=== PATIENT | male | born 1960 | race Caucasian/White ===

== ENCOUNTER 2024-02-05 09:39 | Inpatient (IN) ==
--- NOTE | 2024-02-05 10:15 | Emergency Department Note ---
History of Present Illness General Chief complaint: Knee Injury/Pain Stated complaint: L KNEE EDEMA, SWOLLEN Time Seen by Provider: 02/05/24 09:50 History of Present Illness Maximum Pain Intensity: 5 This is a 63-year-old male that presents to the emergency department via private vehicle with complaints of "left leg edema, swelling". Patient notes that over the past few days he has noticed some swelling and discomfort to the left anterior knee and upon awakening today notes erythema from the left knee towards the left ankle. No known trauma or injury however has had a chronic wound to the left anterior prepatellar region. Patient denies any pain deep in the knee joint. No posterior knee pain. No calf pain. No history of blood clot. No fevers, chills, nausea or vomiting. No known drug allergies. Patient notes he is scheduled for right knee meniscus surgery in the near future. Home Medications Medication Instructions Recorded Confirmed Type bisoprolol 10 1 tab PO QAM ##0 05/26/08 02/05/24 History mg-hydrochlorothiazide 6.25 mg tablet amoxicillin 500 mg capsule 2,000 mg PO DIRECTED PRN dental 02/05/24 02/05/24 History appt. aspirin 81 mg tablet,delayed 81 mg PO DAILY 02/05/24 02/05/24 History release atorvastatin 10 mg tablet 10 mg PO QAM 02/05/24 02/05/24 History chlorhexidine gluconate 0.12 % 1 ea PO BID 02/05/24 02/05/24 History mouthwash hydrocodone 10 mg-acetaminophen 1 tab PO QID PRN Pain 02/05/24 02/05/24 History 325 mg tablet pregabalin 150 mg capsule 150 mg PO HS 02/05/24 02/05/24 History sennosides 8.6 mg tablet (senna) 17.2 mg PO HS PRN Constipation 02/05/24 02/05/24 History tadalafil 5 mg tablet 5 mg PO DAILY PRN Erectile 02/05/24 02/05/24 History Dysfunction Allergies Allergy/AdvReac Type Severity Reaction Status Date / Time No Known Allergies Allergy Mild NONE Unverified 05/21/15 07:47 Past Med/Surg History Problem List (Updated 02/05/24 @ 14:19 by Ana Constantino RN) Right knee meniscal tear Chronic back pain Cellulitis of left leg (Acute) Hypertension Post-operative state Medical History (Updated 02/05/24 @ 16:42 by Uziel Patel PA-C) Prostate CA Surgical History (Updated 02/05/24 @ 14:19 by Ana Constantino RN) History of hip surgery History of prostatectomy No significant past surgical history Social History Smoking Status: Never smoker Do You Dip or Chew Tobacco: No; Hx Alcohol Use: No Hx Substance Use: No Preferred Language: Turkmen Communication Ability: Effective General Accountant Required: No Beliefs That Will Affect Care: None marital status: Current Living Situation: Spouse Other Information That Helps Us Care for You: No Feels Safe at Home: Yes Safety Concerns: Feels Safe At This Time Assistive Devices: None Review of Systems A total of 10 systems reviewed and were otherwise negative Physical Exam Vital Signs Vital Signs - 24 hr 02/05/24 09:45 02/05/24 10:23 Temperature 36.5 C Temperature Source Temporal Artery Scan Pulse Rate 64 60 Respiratory Rate 18 Respiratory Effort / Characteristics Non-Labored Spontaneous Respiratory Depth Normal Respiratory Pattern Regular Blood Pressure 144/76 H Blood Pressure Mean 98 Pulse Oximetry 98 Oxygen Delivery Method Room Air Sepsis Recent Fever Within 48 Hours No Sepsis New/Unexplained Change in Mental Status No Sepsis Action Taken by Nursing No Action Required VITAL SIGNS - Vital signs and nursing notes were reviewed. Stable, afebrile. GENERAL -63-year-old male appearing his stated age who is in no acute distress. Communicates well with provider and answers questions appropriately. SKIN - Without rashes. Skin as above. There is erythema tracking overlying the left anterior knee region distal to the pretibial soft tissue just proximal to the left ankle. There is a approximately 1 cm in length region overlying the patella consistent with chronic wound. No purulence. No crepitus. Minimal tenderness overlying the prepatellar region. HEAD - NC/AT. EYES - Sclera anicteric. NECK - No nuchal rigidity. LUNGS - CTA CARDIAC - RRR EXTREMITIES - No clubbing or peripheral cyanosis. No pretibial edema present. +5/5 strength noted in UE/LE bilaterally. There is some soft tissue edema overlying the left anterior prepatellar soft tissues without fluctuance. Skin as above with the erythema noted overlying the anterior left lower extremity. No crepitus to the leg. NEUROLOGIC - Cranial nerves grossly intact. Sensory intact to light touch throughout. PSYCH -alert, oriented and pleasant on exam. Pt is very pleasant and interacts well with examiner. Course Administered Medications Hydrocodone Bitart/Acetaminophen (Hydrocodone/Acetaminophen 10/325 Tab) 1 tab PO QID PRN PRN Reason: Mod-Sev Pain (Scale 4-10) Stop: 02/19/24 14:09 Last Admin: 02/05/24 15:38 Dose: 1 tab Documented By: DARYL Discontinued Medications Cefazolin Sodium (Ancef 2000mg) 2,000 mg in 15 mls @ 3.75 mls/min IV NOW STA Stop: 02/05/24 10:13 Last Admin: 02/05/24 10:22 Dose: 3.75 mls/min Documented By: TRISTIN Vancomycin HCl 2,000 mg/ (Sodium Chloride) 540 mls @ 200 mls/hr IV NOW ONE Stop: 02/05/24 13:53 Last Infusion: 02/05/24 15:38 Dose: Infused Documented By: Admin: 02/05/24 12:17 Dose: 200 mls/hr Documented By: MINESH Medical Decision Making Laboratory Data 02/05/24 10:20 02/05/24 10:20 Lab Results 02/05/24 Range/Units 10:20 WBC 10.14 (4.8-10.8) K/ul RBC 4.59 L (4.70-6.10) M/uL Hgb 13.8 L (14.0-18.0) g/dl Hct 40.9 L (42.0-52.0) % MCV 89.1 (80.0-100.0) fL MCH 30.1 (25.0-34.0) pg MCHC 33.7 (32.0-36.0) g/dL RDW Std Deviation 40.5 (36.4-46.3) fL RDW Coeff of Chris 12.4 (11.5-14.5) % Plt Count 208 (130-400) K/uL MPV 9.8 (9.4-12.4) fL Immature Gran % (Auto) 0.5 % Neut % (Auto) 75.2 % Lymph % (Auto) 15.9 % Powell % (Auto) 7.6 % Eos % (Auto) 0.5 % Baso % (Auto) 0.3 % Neut # (Auto) 7.63 H (1.40-6.50) K/uL Lymph # (Auto) 1.61 (1.20-3.40) K/uL Powell # (Auto) 0.77 H (0.11-0.59) K/uL Eos # (Auto) 0.05 (0.00-0.50) K/uL Baso # (Auto) 0.03 (0.00-0.20) K/uL Immature Gran # (Auto) 0.05 (0.01-0.20) K/uL Sodium 138 (136-145) mmol/L Potassium 4.4 (3.5-5.1) mmol/L Chloride 103 (98-107) mmol/L Carbon Dioxide 30 (21-32) mmol/L Anion Gap 5 (3-11) BUN 12 (6-23) mg/dl Creatinine 0.92 (0.6-1.4) mg/dl Est Cr Clr Drug Dosing 93.3 ml/min eGFR 92.31 BUN/Creatinine Ratio 13.0 (10-20) Glucose 136 H (70-99(Fasting)) mg/dl Calcium 9.1 (8.6-10.3) mg/dl Total Bilirubin 0.8 (0.2-1.0) mg/dl AST 14 (13-39) U/L ALT 12 (7-52) U/L Alkaline Phosphatase 67 (34-104) U/L Total Protein 6.5 (6.0-8.3) gm/dl Albumin 4.2 (3.4-5.0) gm/dl Globulin 2.3 L (2.5-4.0) gm/dl Albumin/Globulin Ratio 1.8 (0.9-2) Procalcitonin 0.03 (0-0.5) ng/ml Imaging Data Radiologist's Impression: Knee X-Ray 02/05/24 10:10 LEFT KNEE 3 VIEWS CLINICAL HISTORY: Left knee pain. FINDINGS: AP, crosstable lateral, and sunrise views of the left knee are obtained. No prior studies are available for comparison at the time of dictation. The skeletal structures appear osteopenic. No fracture is seen. There is mild tricompartmental degenerative joint space narrowing. Patellar enthesophytes are observed. A calcified fabella is incidentally noted. There is a small joint effusion. Marked prepatellar soft tissue swelling is observed. There is atherosclerotic calcification of the popliteal artery. IMPRESSION: Marked prepatellar soft tissue swelling with no acute bony abnormality identified. Electronically signed by: Marco Zapata M.D. 02/05/2024 11:36 AM Venous Doppler Study 02/05/24 10:10 ULTRASOUND LEFT LOWER EXTREMITY VENOUS CLINICAL HISTORY: Left knee pain and swelling. Erythema. COMPARISON STUDY: No priors. TECHNIQUE: Real-time, grayscale, and color Doppler sonography of the deep veins of the left lower extremity was performed from the inguinal crease to the calf. Compression and augmentation were utilized. FINDINGS: There is no sonographic evidence of deep venous thrombosis identified in the left lower extremity. The common femoral, superficial femoral, and popliteal veins are patent and normally compressible. The greater saphenous vein and the profunda femoris vein at the junction with the common femoral vein are clear. The visualized calf veins are patent. IMPRESSION: There is no sonographic evidence of deep venous thrombosis identified in the left lower extremity. ACT 112: Negative or not required by law. Electronically signed by: Marco Zapata M.D. 02/05/2024 11:07 AM MDM Narrative Patient was seen and evaluated as above in room A10. Review was performed of triage nursing notes and vital signs. Patient presents to us today for evaluation of left lower extremity edema and erythema. This is overlying the prepatellar soft tissue tracking inferiorly overlying the pretibial soft tissues to the level of the ankle. Presentation consistent with cellulitis. There is prepatellar edema noted however there is no fluctuance. Although a bursitis also may be possible, noting the overlying erythema we will refrain from aspirating the bursa in the event this may be just overlying cellulitis and not affecting the bursa. There certainly is no evidence of this being a septic joint. IV access with established. Labs were drawn. There is no leukocytosis. Minor anemia noted with hemoglobin of 13.8. No emergent metabolic disturbance. Hyperglycemia 136. Procalcitonin 0.03. Blood culture pending. No purulence or evidence of abscess to culture at this time. IV Ancef plus vancomycin ordered. I do believe that inpatient management is warranted noting the speed of the spreading as well as the size of the involved area. Case discussed with the hospitalist service. Please refer to further documentation regarding his stay. In the evaluation and treatment of this patient the following differential diagnoses were entertained: Septic bursitis, septic joint, cellulitis, abscess, necrotizing fasciitis, among others Impression & Plan Cellulitis of left leg Discharge Plan Visit Data Chief Complaint: Knee Injury/Pain Stated Complaint: L KNEE EDEMA, SWOLLEN ED Provider: Pineda Moscoso ED Midlevel Provider: Uziel Patel Discharge Problem: Cellulitis of left leg Patient Disposition: Admitted As Inpatient Condition: Good Discharge Instructions Interventions: ED Discharge Assessment Last Done: 02/05/24 13:56
[2024-02-05] MEDS: ceFAZolin 2000MG 2,000 MG/15 ML SYR IV STA (10:22)
[2024-02-05 10:39] LABS: Basophils # (auto) 0.03 K/uL (0.00-0.20); Basophils % (auto) 0.3 %; Eosinophils # (auto) 0.05 K/uL (0.00-0.50); Eosinophils % (auto) 0.5 %; Hematocrit (blood only) 40.9 % (42.0-52.0); Hemoglobin 13.8 g/dl (14.0-18.0); Immature Granulocytes # (auto) 0.05 K/uL (0.01-0.20); Immature Granulocytes % (auto) 0.5 %; Lymphocytes # (auto) 1.61 K/uL (1.20-3.40); Lymphocytes % (auto) 15.9 %; Mean Corpuscular Hemoglobin 30.1 pg (25.0-34.0); Mean Corpuscular Hgb Conc 33.7 g/dL (32.0-36.0); Mean Corpuscular Volume 89.1 fL (80.0-100.0); Mean Platelet Volume 9.8 fL (9.4-12.4); Monocytes # (auto) 0.77 K/uL (0.11-0.59); Monocytes % (auto) 7.6 %; Neutrophils # (auto) 7.63 K/uL (1.40-6.50); Neutrophils % (auto) 75.2 %; Platelet Count 208 K/uL (130-400); RDW Coefficient of Variation 12.4 % (11.5-14.5); RDW Standard Deviation 40.5 fL (36.4-46.3); Red Blood Count 4.59 M/uL (4.70-6.10); White Blood Count 10.14 K/ul (4.8-10.8)
[2024-02-05 10:53] LABS: Albumin Globulin Ratio 1.8 (0.9-2); Albumin Level 4.2 gm/dl (3.4-5.0); Bilirubin,Total 0.8 mg/dl (0.2-1.0); Calcium 9.1 mg/dl (8.6-10.3); Creatinine Clr Calc Pharmacy 93.3 ml/min; Globulin 2.3 gm/dl (2.5-4.0); Potassium 4.4 mmol/L (3.5-5.1); Total Protein 6.5 gm/dl (6.0-8.3)
--- NOTE | 2024-02-05 11:09 | Ultrasound Report ---
ULTRASOUND LEFT LOWER EXTREMITY VENOUS CLINICAL HISTORY: Left knee pain and swelling. Erythema. COMPARISON STUDY: No priors. TECHNIQUE: Real-time, grayscale, and color Doppler sonography of the deep veins of the left lower ext remity was performed from the inguinal crease to the calf. Compression and augmentation were utilized . FINDINGS: There is no sonographic evidence of deep venous thrombosis identified in the left lower ext remity. The common femoral, superficial femoral, and popliteal veins are patent and normally compress ible. The greater saphenous vein and the profunda femoris vein at the junction with the common femora l vein are clear. The visualized calf veins are patent. IMPRESSION: There is no sonographic evidence of deep venous thrombosis identified in the left lower e xtremity. ACT 112: Negative or not required by law. Electronically signed by: Marco Zapata M.D. 02/05/2024 11:07 AM
[2024-02-05] MEDS ORDERED: VANCOMYCIN CONSULT ACTIVE PRN (11:12)
--- NOTE | 2024-02-05 11:37 | XRay Report ---
LEFT KNEE 3 VIEWS CLINICAL HISTORY: Left knee pain. FINDINGS: AP, crosstable lateral, and sunrise views of the left knee are obtained. No prior studies a re available for comparison at the time of dictation. The skeletal structures appear osteopenic. No f racture is seen. There is mild tricompartmental degenerative joint space narrowing. Patellar enthesop hytes are observed. A calcified fabella is incidentally noted. There is a small joint effusion. Marke d prepatellar soft tissue swelling is observed. There is atherosclerotic calcification of the poplite al artery. IMPRESSION: Marked prepatellar soft tissue swelling with no acute bony abnormality identified. Electronically signed by: Marco Zapata M.D. 02/05/2024 11:36 AM
--- NOTE | 2024-02-05 11:43 | History & Physical Report ---
Date of Service February 05, 2024 Assessment & Plan (1) Cellulitis of left leg: (2) Hypertension: (3) Chronic back pain: (4) Right knee meniscal tear: Plan: Cellulitis LLE - Admit to med surg - Started on Vancomycin and cefazolin IV in the ER, will continue cefazolin alone, may be able to transition to oral tablet tomorrow - Follow blood culture x 1, outlined cellulitis with skin marker at bedside - Afebrile, WBC 10K, trend - Patient has minimal pain with palpation, has full range of motion - X-ray left extremity reviewed personally, negative for any acute effusion - Doppler left lower extremity negative for acute DVT - No area to culture any wound R meniscus injury - Possible tear, pt reports scheduled for surgery in 2 weeks HTN -Cont home medications Chronic Back Pain - May continue pain medications, hydrocodone/acetaminophen and pregabalin DVT ppx: teds, scds Lines : PIV 1 CODE: FULL Dispo: From home, likely to remain in the hospital x 1-2 days A total of 76 minutes were spent with greater than 50% of that time face to face with the patient, personally reviewing all current laboratories, imaging studies, past medication reconciliation, outpatient chart review, and discussion with specialists to collaborate care for the patient with attending. Please see attending documentation for corrections and/or additions. History of Present Illness Chief Complaint: Left lower leg redness Primary Care Provider: TAWANA Beckwith This is a 63-year-old male with PMHx of hypertension who presents to the hospital with worsening left lower extremity redness over the past 24 hours. He reports that he does have an area of his knee which has dry skin, scar for many years, but does not know of any known injury/trauma to the affected area. His at bedside, states that he does pick at the area. He thought this started on Thursday where the left knee seemed to have some fluid on it, but then redness started last evening (). It is somewhat painful to touch on the left knee, but Pt has been putting more weight on the left knee because he has a meniscus tear on the right knee and is wearing a brace to support the right. Planned meniscus tear repair on the Right knee surgery in 2 weeks as outpatient. He notices redness is over the left fierro region, knee and up to mid thigh. He denies any bites, scratches patient denies any fever chills or sweats. In the ER patient had an x-ray of the lower extremity which was negative for obvious effusion. DVT of leg is also negative for acute clot. Past Medical History Prostate cancer s/p resection - 2021 - follow with Dr. Murphy Back Pain Social Hx: Denies tobacco or alcohol use, or ilicit drug use. Surgical Hx: R hip total hip replacement, Left Prostate resection Back surgeries - Dr. Kulkarni at [facility] [place] (2002 and 2004) - no fusion Family Hx: Father - Heart disease, Prostate Cancer, Stroke, Skin Cancer Mother- Alive and Well Allergies Allergy/AdvReac Type Severity Reaction Status Date / Time No Known Allergies Allergy Mild NONE Unverified 05/21/15 07:47 Home Medications Medication Instructions Recorded Confirmed Type bisoprolol 10 1 tab PO QAM ##0 05/26/08 02/05/24 History mg-hydrochlorothiazide 6.25 mg tablet amoxicillin 500 mg capsule 2,000 mg PO DIRECTED PRN dental 02/05/24 02/05/24 History appt. aspirin 81 mg tablet,delayed 81 mg PO DAILY 02/05/24 02/05/24 History release atorvastatin 10 mg tablet 10 mg PO QAM 02/05/24 02/05/24 History chlorhexidine gluconate 0.12 % 1 ea PO BID 02/05/24 02/05/24 History mouthwash hydrocodone 10 mg-acetaminophen 1 tab PO QID PRN Pain 02/05/24 02/05/24 History 325 mg tablet pregabalin 150 mg capsule 150 mg PO HS 02/05/24 02/05/24 History sennosides 8.6 mg tablet (senna) 17.2 mg PO HS PRN Constipation 02/05/24 02/05/24 History tadalafil 5 mg tablet 5 mg PO DAILY PRN Erectile 02/05/24 02/05/24 History Dysfunction Past Med/Surg History Problem List (Updated 10/20/23 @ 13:29 by Alpesh Ramos) Right knee meniscal tear Chronic back pain Hypertension Cellulitis of left leg Post-operative state Surgical History (Updated 10/20/23 @ 13:29 by Alpesh Ramso) No significant past surgical history Social History Smoking Status: Never smoker Preferred Language: Vietnamese marital status: Feels Safe at Home: Yes Review of Systems Review of Systems: Constitutional: No fever, sweats or chills Eyes: No diplopia, no worsening or blurred vision ENT: normal hearing, no trouble swallowing Respiratory: No cough, sputum, dyspnea at rest or on exertion Cardiovascular: No chest pain, tightness or palpitations Abdomen: No pain, nausea, vomiting, diarrhea or constipation Musculoskeletal: As per HPI. Back: chronic back pain Neurologic: No weakness, numbness/tingling, or balance problems Psychiatric: No anxiety or depression Skin: No rash or itch, + redness as per HPI of Lower leg Physical Exam Physical Exam: Please refer to attending addendum for PE. Results & Data Results & Data Vital Signs (Past 12 Hours) Vital Signs Temp Pulse Resp BP Pulse Ox O2 Del Method 02/05/24 10:23 60 02/05/24 09:45 36.5 C 64 18 144/76 H 98 Room Air Laboratory Results 02/05/24 10:20 Aerobic Blood Culture - Pending Blood Anaerobic Blood Culture - Pending 02/05/24 10:20 WBC 10.14 RBC 4.59 L Hgb 13.8 L Hct 40.9 L MCV 89.1 MCH 30.1 MCHC 33.7 RDW Std Deviation 40.5 RDW Coeff of Hcris 12.4 Plt Count 208 MPV 9.8 Immature Gran % (Auto) 0.5 Neut % (Auto) 75.2 Lymph % (Auto) 15.9 Miner % (Auto) 7.6 Eos % (Auto) 0.5 Baso % (Auto) 0.3 Neut # (Auto) 7.63 H Lymph # (Auto) 1.61 Miner # (Auto) 0.77 H Eos # (Auto) 0.05 Baso # (Auto) 0.03 Immature Gran # (Auto) 0.05 Sodium 138 Potassium 4.4 Chloride 103 Carbon Dioxide 30 Anion Gap 5 BUN 12 Creatinine 0.92 Est Cr Clr Drug Dosing 93.3 eGFR 92.31 BUN/Creatinine Ratio 13.0 Glucose 136 H Calcium 9.1 Total Bilirubin 0.8 AST 14 ALT 12 Alkaline Phosphatase 67 Total Protein 6.5 Albumin 4.2 Globulin 2.3 L Albumin/Globulin Ratio 1.8 Procalcitonin 0.03 Diagnostic Findings Knee X-Ray 02/05/24 10:10 LEFT KNEE 3 VIEWS CLINICAL HISTORY: Left knee pain. FINDINGS: AP, crosstable lateral, and sunrise views of the left knee are obtained. No prior studies are available for comparison at the time of dictation. The skeletal structures appear osteopenic. No fracture is seen. There is mild tricompartmental degenerative joint space narrowing. Patellar enthes ophytes are observed. A calcified fabella is incidentally noted. There is a small joint effusion. Marked prepatellar soft tissue swelling is observed. There is atherosclerotic calcification of the popliteal artery. IMPRESSION: Marked prepatellar soft tissue swelling with no acute bony abnormality identified. Electronically signed by: Marco Zapata M.D. 02/05/2024 11:36 AM Venous Doppler Study 02/05/24 10:10 ULTRASOUND LEFT LOWER EXTREMITY VENOUS CLINICAL HISTORY: Left knee pain and swelling. Erythema. COMPARISON STUDY: No priors. TECHNIQUE: Real-time, grayscale, and color Doppler sonography of the deep veins of the left lower extremity was performed from the inguinal crease to the calf. Compression and augmentation were utilized. FINDINGS: There is no sonographic evidence of deep venous thrombosis identified in the left lower extremity. The common femoral, superficial femoral, and popliteal veins are patent and normally compressible. The greater saphenous vein and the profunda femoris vein at the junction with the common femoral vein are clear. The visualized calf veins are patent. IMPRESSION: There is no sonographic evidence of deep venous thrombosis identified in the left lower extremity. ACT 112: Negative or not required by law. Electronically signed by: Marco Zapata M.D. 02/05/2024 11:07 AM Code Status & VTE Plan Code Status Full code - discussed with pt at bedside Supervising Physician Co-Signing Physician Notes 63 yo M w/ PMH of HTN presented w/ c/o worsening erythema LLE. Per pt, he has chronic scab over the left patella for over a decade, he sometimes picks on it and has been overusing left knee due to meniscal tear on right (awaiting repair). He noted swelling over left knee about 3-4 days ago, was tender to touch around it but no pain while using the joint/moving around. He started having redness over the area since yesterday and spread around and down to lower leg today which actually triggered him to come to the ED. Pt denies fever/sore throat/Cough/chest pain/nausea/vomiting/acute changes in bowel or bladders habit. Labs wnl, no leucocytosis. vitals wnl, no fever, tachy or increased rr Lt Knee XR w/ Marked prepatellar soft tissue swelling with no acute bony abnormality identified. LLE venous Doppler neg for DVT. LLE cellulitis: pt received cefazolin and vanc in the ed. Will c/w cefazolin only. dc vanc. monitor. follow admitting blood culture. If worsening, repeat imaging, consider ortho and change antibiotic to broad spectrum. Such plan of care was explained to pt and his at bedside who were in agreement w/ plan of care. Other chronic condition: HTN, HLD -- c/w home meds. On exam: GENERAL: Alert and oriented x3. NAD, on RA. HEENT: No pallor, no icterus. Pupils equal, round and reactive to light. Oral mucosa moist. NECK: No JVD, no neck masses. HEART: S1 and S2 heard. Regular rate and rhythm. No murmur, no gallop. RESPIRATORY SYSTEM: Normal AP diameter. No accessory muscle use. No wheezing, no crackles. ABDOMEN: Soft, bowel sounds present, nontender, no distention. CENTRAL NERVOUS SYSTEM: No facial droop. Speech is clear. Obeys simple commands. Moves extremities. EXTREMITIES: No edema. RLE - knee sleeve on, no erythema. LLE - old scar x central prepatellar area, non tender on exam, rom not painful, erythema from lower thigh to lower leg w/ anterio-lateral spread. Prepatellar soft tissue swelling noted, non tender. I have seen and examined the patient and have discussed the case with the provider above. I agree with the assessment and plan as stated. Total time spent: 30 min.
[2024-02-05] MEDS: VANCOMYCIN HCL 2,000 MG in SODIUM CHLORIDE 0.9% 500 ML IV ONE (12:17)
--- NOTE | 2024-02-05 13:08 | Emergency Department Note ---
ED Visit Note I was consulted in regards to the patient's presentation and plan of care by the Advanced Practice Provider. I engaged in a detailed/meaningful discussion with the Advanced Practice Provider in regards to this patient's workup and plan of care. I performed a substantiative portion of the medical decision making following discussion with the Advanced Practice Provider. Please see the Advanced Practice Provider's separate documentation for full details of the patient's visit. I agree with the assessment and plan of Uziel Patel PA-C. [facility] Moscoso, Emergency Medicine .
[2024-02-05] MEDS ORDERED: ONDANSETRON INJ 2 MG/ML 2 ML VIAL IV PRN (14:10)
[2024-02-05] MEDS ORDERED: ACETAMINOPHEN 325 MG TAB PO PRN (14:10)
[2024-02-05] MEDS ORDERED: SENNA 8.6 MG TAB PO PRN (14:10)
[2024-02-05] MEDS: HYDROcodone/ACETAMINOPHEN 10/325 TAB PO PRN (15:38)
[2024-02-05] MEDS: ceFAZolin 2000MG 2,000 MG/15 ML SYR IV SCH (18:39)
--- OUTSIDE RECORDS SUMMARY | 2024-02-05 19:46 | External Medical Summary | Summary of Care ---
Author Name Unknown Organization [facility] Address [address] [place] [facility] [place] [address] Phone [phone] Care Team Providers Care Key Entry Operator Name Role Phone Sushant Parada Primary Care Prov ider Reason for Visit * Reason Comments Outpatient Testing Encounter Details Date Type Department Care Team (Late st Contact Info) Description 02/02/2024 9:40 AM EDT Laboratory Laboratory [address] [place] [id number] [place], [facility] [address] [place] [address] [employer] Other*[id number] Allergies No known active allergiesdocumented as of this encounter (statuses as of 02/02/2024) Medications Medication Sig Dispensed Refills Start Date End Date Status Pregabalin 150 MG Oral Capsule (LYRICA) Take 1 Capsule by mouth in the morning and 1 Capsule at noon and 1 Capsule before bedtime. 01/16/2020 Active Bisoprolol-hydroCHL OROthiazide 10-6.25 MG Oral Tablet (ZIAC) Take 1 Tablet by mouth in the morning. 12/21/2019 Active traMADol HCl 50 MG Oral Tablet (Ultram) TAKE 1-2 TABLETS BY MOUTH 4 TIMES A DAY NEEDED FOR PAIN 10/17/2021 Active Vitamin D (Cholecalciferol) 10 MCG (400 UNIT) Oral Tablet Chewable Take 1 Tablet by mouth in the morning. Active oxyCODONE HCl 10 MG Oral Tablet (Roxicodone) every 6 hours as needed. 10/19/2022 Active Methotrexate Sodium 2.5 MG Oral Tablet Take 1 Tablet by mouth once a week. Take 5 tablets once a week 01/21/2023 Active Aspirin 81 MG Oral Tablet Delayed Release Take 1 Tablet by mouth in the morning. 04/08/2023 Active Tadalafil 5 MG Oral Tablet (Cialis)Indications :Erectile dysfunction, unspecified erectile dysfunction type,BPH with obstruction/lower urinary tract symptoms,Elevated prostate specific antigen (PSA) TAKE 1 TABLET BY MOUTH ONCE DAILY IF NEEDED FOR ERECTILE DYSFUNCTION 90 Tablet 3 06/26/2023 Active Atorvastatin Calcium 10 MG Oral Tablet (Lipitor)Indication s:Hyperlipidemia with target LDL less than 100 take 1 tablet by mouth once daily 90 Tablet 3 08/17/2023 Active documented as of this encounter (statuses as of 02/02/2024) Active Problems Problem Noted Date Diagnosed Date PAD (peripheral artery disease) 11/12/2022 Renal cyst, acquired 11/04/2022 Urinary incontinence 07/29/2022 Prostate cancer 05/29/2022 BPH with obstruction/lower urinary tract symptom s 12/16/2021 Elevated prostate specific antigen (PSA) 022 Erectile dysfunction 12/16/2021 Prostate cancer 10/30/2021 ADVANCE DIRECTIVE INFORMATION 06/11/2005 Overview: Yes, Patient instructed to provide copy of advance directive for provider to review and to be scanned into Electronic Medical Record documented as of this encounter (statuses as of 02/02/2024) Immunizations Name Administration Dates Next Due Seasonal Influenza, PF, 6 M & above, IM , (FluLaval or Fluzone) 02/10/2023 documented as of this encounter Social History Tobacco Use Types Packs/Day Years Used Date Smoking Tobacco: Never Smokeless Tobacco: Former Snuff, Chew Comments:as a "kid" Alcohol Use Standard Drinks/Week Comments Not Currently 0 (1 standard drink = 0.6 oz pur e alcohol) rare Utilities Answer Date Recorded Do you have trouble paying y our heating, water, or electric bill? (Adult - for ages 18 years and over) Not on file 10/13/2023 Is your family able to pay t he heat, water, or electric bill? (Household - for ages 0-17 years) Not on file 10/13/2023 Does your family have access to good internet? (Household - for ages 0-17 years) Not on file 10/13/2023 Social Connections Answer Date Recorded How often do you feel lonely or isolated from those around you? (Adult - for ages 18 years and over) Not on file 10/13/2023 Sex and Gender Information Value Date Recorded Sex Assigned at Not on file Gender Identity Not on file Sexual Orientation Not on file Job Start Date Occupation Industry Not on file Not on file Not on file documented as of this encounter Functional Status Functional Status Response Date of Assess ment Are you deaf or do you have serious difficulty h earing? No 05/29/2022 Are you blind or do you have serious difficulty seeing, even when wearing glasses? No 05/29/2022 Do you have serious difficul ty walking or climbing stairs? (5 years old or older) No 05/29/2022 Do you have difficulty dress ing or bathing? (5 years old or older) No 05/29/2022 Because of a physical, menta l, or emotional condition, do you have difficulty doing errands alone such as visiting a doctor s office or shopping? (15 years old or older) No 05/29/19 Cognitive Status Response Date of Assessm ent Because of a physical, menta l, or emotional condition, do you have serious difficulty concentrating, remembering, or making decisions? (5 years old or older) No 05/29/2022 documented as of this encounter Plan of Treatment Upcoming Encounters Date Type Department Care Team (Late st Contact Info) Description 07/12/2024 8:30 AM EDT Office Visit Urology, [facility] [address] [facility] [place] [id number] Montrell Murphy MD [address] [place] [phone] Pending Results Name Type Priority Associated Diagnoses Date /Time MYCODE SUBSEQUENT ADULT Lab Routine [employer] Other*[id number] 02/02/2024 9:39 AM EDT MYCODE SST1 Lab Routine [employer] Other*[id number] 02/02/2024 9:39 AM EDT MYCODE SST2 Lab Routine [employer] Other*[id number] 02/02/2024 9:39 AM EDT Health Maintenance Due Date Last Done Comments Pneumococcal Vaccine: 65+ Years (1 of 2 - PCV) 1964 Depression Screening 1970 HIV Screening 1973 Hepatitis C Screening 1976 DTap/Tdap Vaccines (1 - Tdap) 1977 Zoster Vaccines (1 of 2) 1977 Colonoscopy 10/25/2003 Fecal Occult Blood Test 10/25/2003 Sigmoidoscopy 10/25/2003 COVID-19 Vaccine (3 - Pfizer risk series) 08/13/2020 07/16/2020, 06/25/2020 Influenza Vaccine (FLU shot) (#1) 2023 02/10/2023, 01/06/2020, 01/06/2020, Additional history exists Diabetes Screening 05/30/2025 05/30/2022, 0 05/29/2022, 05/29/2022, Additional history exists Cologuard 03/13/2026 03/13/2023, 11/0 12/2022, 08/28/2022, Additional history exists Colorectal Cancer Screening 03/13/2026 Lipid Panel 11/05/2026 11/05/2021, 04/0 07/2021, 10/17/2020, Additional history exists HPV (Gardasil) Vaccine Aged Out No lo nger eligible based on patient's age to complete this topic Hepatitis B Vaccine Aged Out No longe r eligible based on patient's age to complete this topic MENINGOCOCCAL (MENACTRA/MENVEO) Aged Out No longer eligible based on patient's age to complete this topic documented as of this encounter Medical Devices Not on filedocumented as of this encounter Visit Diagnoses Diagnosis [employer] Other*[id number] documented in this encounter Advance Directives * Full Code (Latest Code Status on File) Date Activated Date Inactivated Comments 05/30/2022 8:08 AM 05/30/2022 4:53 PM This order ref lects the patients wishes and were consensually agreed upon. Question Answer Comments Discussion of Advance Directives occurred with: Patient * Full Code Date Activated Date Inactivated Comments 05/29/2022 1:45 PM 05/30/2022 8:08 AM This order ref lects the patients wishes and were consensually agreed upon. Question Answer Comments Discussion of Advance Directives occurred with: Patient * Full Code Date Activated Date Inactivated Comments 05/29/2022 7:14 AM 05/29/2022 1:45 PM This order ref lects the patients wishes and were consensually agreed upon. Question Answer Comments Discussion of Advance Directives occurred with: Patient Care Teams Key Entry Operator Relationship Specialty Start Date End Date Sushant Parada CRNP [address] [place] [id number] PCP - General Nurse Practitioner 10/30/21 documented as of this encounter
--- OUTSIDE RECORDS SUMMARY | 2024-02-05 19:47 | External Medical Summary ---
Author Name Unknown Address Unknown Organization K01:[facility] [address] [place] [address] Laboratory Report Ordering Provider Test Date Status KIANA LOPEZ 02/02/2024 09:39:27 Final Observation Date Value Abnormality Reference (Units ) Status PSA 02/02/2024 09:39:27 <0.02 <4.10 (ng/ mL) Final Performing Location [facility] - [address] [place] [address]
--- OUTSIDE RECORDS SUMMARY | 2024-02-05 19:47 | External Medical Summary ---
Author Name Unknown Address Unknown Organization K01:[facility] [place] - [address] [place] [address] Laboratory Report Ordering Provider Test Date Status MORA JORGE 02/02/2024 09:39:27 Final Observation Date Value Abnormality Reference (Units ) Status MYCODE SPECIMEN-SST 02/02/2024 09:39:27 Freezing of extracted DNA, whole blood and/or serum. Final Performing Location [facility] - [address] [place] [address]
--- OUTSIDE RECORDS SUMMARY | 2024-02-05 19:47 | External Medical Summary ---
Author Name Unknown Address Unknown Organization K01:[facility] [place] - [address] [place] [address] Laboratory Report Ordering Provider Test Date Status MORA JORGE 02/02/2024 09:39:27 Final Observation Date Value Abnormality Reference (Units ) Status MYCODE SPECIMEN-SST 02/02/2024 09:39:27 Freezing of extracted DNA, whole blood and/or serum. Final Performing Location [facility] - [address] [place] [address]
[2024-02-05] MEDS: PREGABALIN 150 MG CAP PO SCH (20:50)
[2024-02-05] MEDS: INFLUENZA VACC TS2024-25(65y+)/PF (IIV3) 0.5mL Syr IM ONE (20:51)
[2024-02-06 07:11] LABS: Hematocrit (blood only) 38.2 % (42.0-52.0); Hemoglobin 13.2 g/dl (14.0-18.0); Mean Corpuscular Hemoglobin 30.3 pg (25.0-34.0); Mean Corpuscular Hgb Conc 34.6 g/dL (32.0-36.0); Mean Corpuscular Volume 87.6 fL (80.0-100.0); Mean Platelet Volume 10.1 fL (9.4-12.4); Platelet Count 196 K/uL (130-400); RDW Coefficient of Variation 12.1 % (11.5-14.5); RDW Standard Deviation 39.3 fL (36.4-46.3); Red Blood Count 4.36 M/uL (4.70-6.10); White Blood Count 8.33 K/ul (4.8-10.8)
[2024-02-06 07:38] LABS: BUN Creatinine Ratio 11.9 (10-20); Calcium 8.4 mg/dl (8.6-10.3); Creatinine Clr Calc Pharmacy 101.2 ml/min; Potassium 3.8 mmol/L (3.5-5.1)
[2024-02-06] MEDS: INFLUENZA VACC TS2024-25(65y+)/PF (IIV3) 0.5mL Syr IM ONE (08:31)
[2024-02-06] MEDS: hydroCHLOROthiazide 25 MG TAB PO SCH (08:36)
[2024-02-06] MEDS: ATORVASTATIN 10 MG TAB PO SCH (08:37)
[2024-02-06] MEDS: ASPIRIN 81 MG ECTAB PO SCH (08:37)
[2024-02-06] MEDS: BISOPROLOL FUMARATE 5 MG TAB PO SCH (08:37)
--- NOTE | 2024-02-06 10:46 | Orthopedic Consultation ---
Date of Consultation February 06, 2024 Assessment & Plan (1) Cellulitis of left leg: IMPRESSION: LLE cellulitis, improving on antibiotics, with prepatellar bursitis PLAN: Continue Abx per primary team. WBAT Will continue to monitor, no need for surgical intervention at this time. Will hold off on aspiration for now as needle would have to go through erythema. Discussed with patient to avoid direct pressure/kneeling. Continue care per primary service. Present on Admission?: Yes History of Present Illness Reason for Consultation: LLE Cellulitis, Pre-patellar bursitis, infected? Requesting Physician: Mylene Stephenson MD Attending Physician: Cecilio Diaz DO History of Present Illness 63 yo M w/ PMH of HTN presented w/ 3-4 days of worsening swelling and erythema LLE. Patient describes chronic scab over the left patella for over a decade, he sometimes picks at it and has been overusing left knee due to meniscal tear on right, awaiting surgery with Dr. Burton. Admits to tender to touch around the knee but no pain while using the joint/moving around. Has seen Dr. Mckeon in the past for right hip OA and Dr. Lindquist preformed L [facility] many years ago. He reports 1-2 days of redness over the area that has spread around and down to lower leg which led to come to the ED. Pt denies fever/sore throat/cough/chest pain/nausea/vomiting/acute changes in bowel or bladders habit. Allergies Allergy/AdvReac Type Severity Reaction Status Date / Time No Known Allergies Allergy Mild NONE Unverified 05/21/15 07:47 Home Medications Medication Instructions Recorded Confirmed Type bisoprolol 10 1 tab PO QA ##0 05/26/08 02/05/24 History mg-hydrochlorothiazide 6.25 mg tablet amoxicillin 500 mg capsule 2,000 mg PO DIRECTED PRN dental 02/05/24 02/05/24 History appt. aspirin 81 mg tablet,delayed 81 mg PO DAILY 02/05/24 02/05/24 History release atorvastatin 10 mg tablet 10 mg PO QAM 02/05/24 02/05/24 History chlorhexidine gluconate 0.12 % 1 ea PO BID 02/05/24 02/05/24 History mouthwash hydrocodone 10 mg-acetaminophen 1 tab PO QID PRN Pain 02/05/24 02/05/24 History 325 mg tablet pregabalin 150 mg capsule 150 mg PO HS 02/05/24 02/05/24 History sennosides 8.6 mg tablet (senna) 17.2 mg PO HS PRN Constipation 02/05/24 02/05/24 History tadalafil 5 mg tablet 5 mg PO DAILY PRN Erectile 02/05/24 02/05/24 History Dysfunction Patient History Medical History (Updated 02/05/24 @ 16:42 by Uziel Patel PA-C) Prostate CA Surgical History (Updated 02/05/24 @ 14:19 by Ana Constantino RN) History of hip surgery History of prostatectomy No significant past surgical history Social History Smoking Status: Never smoker Do You Dip or Chew Tobacco: No; Hx Alcohol Use: No Hx Substance Use: No Preferred Language: Syriac Communication Ability: Effective Flavoring Oil Filterer Required: No Beliefs That Will Affect Care: None marital status: Current Living Situation: Spouse Other Information That Helps Us Care for You: No Feels Safe at Home: Yes Safety Concerns: Feels Safe At This Time Assistive Devices: None Review of Systems Review of Systems: All systems reviewed & are unremarkable except as noted in HPI & below Physical Exam Physical Exam: LLE: Sensation to light touch is unchanged (h/o neuropathy), BCR < 2 sec, motor to gastroc soleus, Tib ant, & EHL 5/5. Calf is soft and non-tender. Full ROM knee. There is an outline from above the knee down the lower leg to ankle with decreased erythema. + TTP anterior knee in area of small prepatellar bursitis. There is a small linear scab over the anterior knee. Results & Data Vital Signs (Past 12 Hours) Vital Signs Temp Pulse Resp BP Pulse Ox O2 Del Method 02/06/24 08:36 Room Air 02/06/24 07:35 36.7 C 59 L 16 135/74 96 Room Air Laboratory Results Laboratory Results WBC 8.33 K/ul (4.8-10.8) 02/06/24 06:42 RBC 4.36 M/uL (4.70-6.10) L 02/06/24 06:42 Hgb 13.2 g/dl (14.0-18.0) L 02/06/24 06:42 Hct 38.2 % (42.0-52.0) L 02/06/24 06:42 MCV 87.6 fL (80.0-100.0) 02/06/24 06:42 MCH 30.3 pg (25.0-34.0) 02/06/24 06:42 MCHC 34.6 g/dL (32.0-36.0) 02/06/24 06:42 RDW Std Deviation 39.3 fL (36.4-46.3) 02/06/24 06:42 RDW Coeff of Chris 12.1 % (11.5-14.5) 02/06/24 06:42 Plt Count 196 K/uL (130-400) 02/06/24 06:42 MPV 10.1 fL (9.4-12.4) 02/06/24 06:42 Immature Gran % (Auto) 0.5 % 02/05/24 10:20 Neut % (Auto) 75.2 % 02/05/24 10:20 Lymph % (Auto) 15.9 % 02/05/24 10:20 Sibley % (Auto) 7.6 % 02/05/24 10:20 Eos % (Auto) 0.5 % 02/05/24 10:20 Baso % (Auto) 0.3 % 02/05/24 10:20 Neut # (Auto) 7.63 K/uL (1.40-6.50) H 02/05/24 10:20 Lymph # (Auto) 1.61 K/uL (1.20-3.40) 02/05/24 10:20 Sibley # (Auto) 0.77 K/uL (0.11-0.59) H 02/05/24 10:20 Eos # (Auto) 0.05 K/uL (0.00-0.50) 02/05/24 10:20 Baso # (Auto) 0.03 K/uL (0.00-0.20) 02/05/24 10:20 Immature Gran # (Auto) 0.05 K/uL (0.01-0.20) 02/05/24 10:20 Sodium 140 mmol/L (136-145) 02/06/24 06:42 Potassium 3.8 mmol/L (3.5-5.1) 02/06/24 06:42 Chloride 106 mmol/L (98-107) 02/06/24 06:42 Carbon Dioxide 28 mmol/L (21-32) 02/06/24 06:42 Anion Gap 6 (3-11) 02/06/24 06:42 BUN 10 mg/dl (6-23) 02/06/24 06:42 Creatinine 0.84 mg/dl (0.6-1.4) 02/06/24 06:42 Est Cr Clr Drug Dosing 101.2 ml/min 02/06/24 06:42 eGFR 96.78 02/06/24 06:42 BUN/Creatinine Ratio 11.9 (10-20) 02/06/24 06:42 Glucose 107 mg/dl (70-99(Fasting)) H 02/06/24 06:42 Calcium 8.4 mg/dl (8.6-10.3) L 02/06/24 06:42 Total Bilirubin 0.8 mg/dl (0.2-1.0) 02/05/24 10:20 AST 14 U/L (13-39) 02/05/24 10:20 ALT 12 U/L (7-52) 02/05/24 10:20 Alkaline Phosphatase 67 U/L (34-104) 02/05/24 10:20 Total Protein 6.5 gm/dl (6.0-8.3) 02/05/24 10:20 Albumin 4.2 gm/dl (3.4-5.0) 02/05/24 10:20 Globulin 2.3 gm/dl (2.5-4.0) L 02/05/24 10:20 Albumin/Globulin Ratio 1.8 (0.9-2) 02/05/24 10:20 Procalcitonin 0.03 ng/ml (0-0.5) 02/05/24 10:20 Impressions Knee X-Ray 02/05/24 10:10 LEFT KNEE 3 VIEWS CLINICAL HISTORY: Left knee pain. FINDINGS: AP, crosstable lateral, and sunrise views of the left knee are obtained. No prior studies are available for comparison at the time of dictation. The skeletal structures appear osteopenic. No fracture is seen. There is mild tricompartmental degenerative joint space narrowing. Patellar enthesophytes are observed. A calcified fabella is incidentally noted. There is a small joint effusion. Marked prepatellar soft tissue swelling is observed. There is atherosclerotic calcification of the popliteal artery. IMPRESSION: Marked prepatellar soft tissue swelling with no acute bony abnormality identified. Electronically signed by: Marco Zapata M.D. 02/05/2024 11:36 AM Venous Doppler Study 02/05/24 10:10 ULTRASOUND LEFT LOWER EXTREMITY VENOUS CLINICAL HISTORY: Left knee pain and swelling. Erythema. COMPARISON STUDY: No priors. TECHNIQUE: Real-time, grayscale, and color Doppler sonography of the deep veins of the left lower extremity was performed from the inguinal crease to the calf. Compression and augmentation were utilized. FINDINGS: There is no sonographic evidence of deep venous thrombosis identified in the left lower extremity. The common femoral, superficial femoral, and popliteal veins are patent and normally compressible. The greater saphenous vein and the profunda femoris vein at the junction with the common femoral vein are clear. The visualized calf veins are patent. IMPRESSION: There is no sonographic evidence of deep venous thrombosis identified in the left lower extremity. ACT 112: Negative or not required by law. Electronically signed by: Marco Zapata M.D. 02/05/2024 11:07 AM
--- NOTE | 2024-02-06 12:07 | Hospitalist Progress Note ---
Date of Service February 06, 2024 Assessment & Plan (1) Cellulitis of left leg: Plan: Prepatellar bursitis (2) Hypertension: (3) Chronic back pain: (4) Right knee meniscal tear: Plan Patient with left lower extremity cellulitis and prepatellar bursitis, concern for possible infected bursa Continue current antibiotic regimen Consult orthopedics, communication with orthopedic team, no intervention indicated at this time. Recommending continue antibiotics and continue to monitor Continue other home medications Monitor blood culture Admission and Anticipated Discharge Date Admission Date: February 05, 2024 Subjective Patient feels as though her leg is a little less red. Physical Exam Physical Exam: Constitutional: Alert HEENT: Mucous membranes moist. Lungs: Clear to auscultation, decreased, no wheezes rales or rhonchi CV: S1-S2, regular Abdomen: Soft, nontender, nondistended Extremities: Left lower extremity mildly pink, redness with in the ink markings placed at the time of admission. Minimally warm to touch. Tender prepatellar bursitis noted with chronic eschar on skin. Neuro: No focal deficits Psych: Cooperative, normal mood Results & Data Results & Data Vital Signs (Past 12 Hours) Vital Signs Temp Pulse Resp BP Pulse Ox O2 Del Method 02/06/24 08:36 Room Air 02/06/24 07:35 36.7 C 59 L 16 135/74 96 Room Air Diagnostic Findings Reviewed imaging, laboratory and diagnostic studies. Pertinent findings as below. WBCs 8.3 Electrolytes all within normal range Blood cultures no growth to date
[2024-02-07 07:31] VITALS: BP 126/82; PULSE 56; RESP 18; TEMP 97.7; O2SAT 97
--- NOTE | 2024-02-07 09:01 | Discharge Summary ---
Discharge Summary Date of Service February 07, 2024 Principal Dx & Hospital Course #1 = Principal Diagnosis (1) Cellulitis of left leg: (2) Prepatellar bursitis of left knee: (3) Hypertension: (4) Chronic back pain: (5) Right knee meniscal tear: Plan Patient presented to the emergency room with redness and swelling of his left lower extremity. Patient was diagnosed with cellulitis and admitted to the hospital. Patient was given IV antibiotics. By the following morning had significant improvement in the redness and swelling. Patient on exam also had evidence of a previous patellar bursitis. Chronic eschar over the left knee. There was some tenderness to this as well. Orthopedic consultation was obtained. Patient was evaluated by orthopedics. They felt that the patient was responding to the IV antibiotics and did not need any surgical intervention or even aspiration of the bursitis and recommended ongoing antibiotics. On the morning of discharge his redness had completely resolved from the left lower extremity. Tenderness and even some of the swelling of the bursitis had significantly improved. Cultures were showing no significant growth. Patient's other vital signs are stable. He can converted to oral antibiotics discharged home and follow-up with his PCP and orthopedics outpatient. Notes For Next Care Provider Continue to follow-up with orthopedics outpatient Medication Changes From Visit Cephalexin added for lower extremity cellulitis Admission HPI Per Admitting Provider This is a 63-year-old male with PMHx of hypertension who presents to the hospital with worsening left lower extremity redness over the past 24 hours. He reports that he does have an area of his knee which has dry skin, scar for many years, but does not know of any known injury/trauma to the affected area. His at bedside, states that he does pick at the area. He thought this started on Thursday where the left knee seemed to have some fluid on it, but then redness started last evening (). It is somewhat painful to touch on the left knee, but Pt has been putting more weight on the left knee because he has a meniscus tear on the right knee and is wearing a brace to support the right. Planned meniscus tear repair on the Right knee surgery in 2 weeks as outpatient. He notices redness is over the left fierro region, knee and up to mid thigh. He denies any bites, scratches patient denies any fever chills or sweats. In the ER patient had an x-ray of the lower extremity which was negative for obvious effusion. DVT of leg is also negative for acute clot. Past Medical History Prostate cancer s/p resection - 2021 - follow with Dr. Murphy Back Pain Social Hx: Denies tobacco or alcohol use, or ilicit drug use. Surgical Hx: R hip total hip replacement, Left Prostate resection [place] [facility] [place] no fusion Family Hx: Father - Heart disease, Prostate Cancer, Stroke, Skin Cancer Mother- Alive and Well Admission Exam Per Admitting Provider See H&P Discharge Exam Constitutional: Alert, nontoxic in appearance HEENT: Mucous membranes moist. Lungs: Clear to auscultation, decreased, no wheezes rales or rhonchi CV: S1-S2, regular Abdomen: Soft, nontender, nondistended Extremities: Left lower extremity erythema resolved, swelling resolved. Left prepatellar bursitis, no redness, decreased tenderness, chronic eschar no evidence of drainage or inflammation Neuro: No focal deficits Psych: Cooperative, normal mood Updated Medication List Medication Instructions Recorded Confirmed Type bisoprolol 10 1 tab PO QAM ##0 05/26/08 02/05/24 History mg-hydrochlorothiazide 6.25 mg tablet amoxicillin 500 mg capsule 2,000 mg PO DIRECTED PRN dental 02/05/24 02/05/24 History appt. aspirin 81 mg tablet,delayed 81 mg PO DAILY 02/05/24 02/05/24 History release atorvastatin 10 mg tablet 10 mg PO QAM 02/05/24 02/05/24 History chlorhexidine gluconate 0.12 % 1 ea PO BID 02/05/24 02/05/24 History mouthwash hydrocodone 10 mg-acetaminophen 1 tab PO QID PRN Pain 02/05/24 02/05/24 History 325 mg tablet pregabalin 150 mg capsule 150 mg PO HS 02/05/24 02/05/24 History sennosides 8.6 mg tablet (senna) 17.2 mg PO HS PRN Constipation 02/05/24 02/05/24 History tadalafil 5 mg tablet 5 mg PO DAILY PRN Erectile 02/05/24 02/05/24 History Dysfunction cephalexin 500 mg capsule 500 mg PO TID 7 days #21 caps 02/07/24 Rx Hospital Stay Data Consultations 10/11/24 11:37 ED Decision to Admit Stat 02/06/24 08:46 Consult Orthopedic Surgery Routine Diagnostic Imagining Performed 02/05/24 10:10 US venous doppler LE LT Stat Reviewed imaging, laboratory and diagnostic studies. Pertinent findings as below. Blood culture no growth to date WBCs 8.3 Hemoglobin 13.2 Electrolytes and renal function within normal ranges Ultrasound of the left lower extremity negative for DVT Pending Results Patient Have Any Pending Studies at Discharge: No Discharge Instructions Given to Patient (Per Discharging Provider) Complete course of antibiotics Follow-up with orthopedics Total Time Total Time Spent Total Time Spent (In Minutes): 25
== END 2024-02-07 12:18 | disposition home or self-care (01) | DRG 603 ==
LOC: ED 09:39 → SUATTDRO 11:43 → 3W 11:43